=== PATIENT | male | born 1955 | race Caucasian/White ===

== ENCOUNTER 2018-12-18 09:43 | Observation (INO) | payer SELFPAY ==
[~2018-12-18] VITALS: Ht 182.9 cm; Wt 100.8 kg
--- NOTE | 2018-12-18 09:55 | NUR ---
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 SYCOPAL EPISODE LASTED APPROX 1-3 MINS PER C[employer]ORKERS. PATIENT STATES THAT HE WAS DIZZY EARLIER BUT RESOLVED NOW. VS STABLE. DR. ARITA AT BEDSIDE.
[2018-12-18] MEDS ORDERED: SODIUM CHLORIDE FLUSH 10ML SYR IVF ONE (10:00)
--- NOTE | 2018-12-18 10:13 | NUR ---
MULTIPLE CALLS MADE TO , JESSICA, AT [phone], TO LET HER KNOW THAT PATIENT IS HERE BUT UNABLE TO REACH HER.
[2018-12-18 10:26] LABS: BASOPHILS # (AUTO) 0.04 x10^3/uL (0-0.1); BASOPHILS % (AUTO) 1 % (0-1); EOSINOPHILS # (AUTO) 0.13 x10^3/uL (0-0.4); EOSINOPHILS % (AUTO) 2 % (1-7); LYMPHOCYTES # (AUTO) 1.87 x10^3/uL (1-3.4); LYMPHOCYTES % (AUTO) 23 % (22-44); MD NO; MEAN CORPUSCULAR HEMOGLOBIN 29.8 pg (27.5-34.5); MEAN CORPUSCULAR HGB CONC 34.8 g/dL (33.2-36.2); MEAN CORPUSCULAR VOLUME 85.7 fL (81-97); MEAN PLATELET VOLUME 8.5 fL (7.4-10.4); MONOCYTES # (AUTO) 0.57 x10^3/uL (0.2-0.8); MONOCYTES % (AUTO) 7 % (2-9); NEUTROPHILS # (AUTO) 5.35 x10^3/uL (1.8-6.8); NEUTROPHILS % (AUTO) 67 % (42-75); PLATELET COUNT 255 x10^3/uL (130-400); RED CELL DISTRIBUTION WIDTH 14.1 % (9.4-14.8)
[2018-12-18 10:38] LABS: ALANINE AMINOTRANSFERASE 32 U/L (12-78); ALBUMIN 3.9 g/dL (3.4-5.0); ANION GAP 5 mmol/L (5-15); CALCIUM 9.2 mg/dL (8.5-10.1); CHLORIDE 98 mmol/L (98-107); CREATININE 1.01 mg/dL (0.7-1.3); T4 (THYROXINE) 9.1 mcg/dL (4.5-12.1)
[2018-12-18 10:43] LABS: ALKALINE PHOSPHATASE 84 U/L (45-117); BILIRUBIN,TOTAL 0.6 mg/dL (0.2-1.0); TOTAL PROTEIN 7.1 g/dL (6.4-8.2); TROPONIN I < 0.015 ng/mL (0.000-0.045)
[2018-12-18] MEDS ORDERED: TRAZODONE 50MG TABLET PO PRN (11:30)
[2018-12-18] MEDS ORDERED: BACLOFEN 10 MG TABLET PO PRN (11:30)
[2018-12-18] MEDS ORDERED: GLUCAGON 1 MG IM PRN (11:30)
[2018-12-18] MEDS ORDERED: ACETAMINOPHEN 325 MG TABLET PO PRN (11:30)
[2018-12-18] MEDS ORDERED: DEXTROSE 4 GM TAB.CHEW PO PRN (11:30)
[2018-12-18] MEDS: INSULIN LISPRO 100 UNITS/ML, PEN SQ-INSULIN SCH ×3 (11:30→19:57)
[2018-12-18] MEDS ORDERED: DEXTROSE 50%, 50ML SYRINGE IVPush PRN (11:30)
[2018-12-18] MEDS ORDERED: ALLOPURINOL PO (12:01)
[2018-12-18] MEDS ORDERED: LISINOPRIL PO (12:01)
[2018-12-18] MEDS ORDERED: CHLORTHALIDONE PO (12:01)
[2018-12-18] MEDS ORDERED: CLONIDINE PO (12:01)
[2018-12-18] MEDS ORDERED: METFORMIN PO (12:01)
[2018-12-18 13:19] VITALS: BP 175/88
[2018-12-18] MEDS: hydrALAzine 20 MG/ML, 1ML IVPush PRN (13:26)
[2018-12-18] MEDS: SODIUM CHLORIDE FLUSH 10ML SYR IVF SCH ×2 (13:26→19:56)
[2018-12-18] MEDS ORDERED: HYDR-3245 PO (13:51)
[2018-12-18] MEDS ORDERED: INSU100V11 SQ-INSULIN (13:51)
[2018-12-18] MEDS: NS + 20MEQ KCL 1,000 ML IV SCH (13:54)
[2018-12-18 14:33] VITALS: BP 154/69
[2018-12-18 15:02] LABS: MICROSCOPIC NOT IND
[2018-12-18 15:09] LABS: CULTURE INDICATED? NO
[2018-12-18 16:01] VITALS: BP 154/86
[2018-12-18 16:02] VITALS: BP_SYST 150; BP_SYST 169; BP_DIAS 76; BP_DIAS 82
[2018-12-18 16:34] LABS: TROPONIN I < 0.015 ng/mL (0.000-0.045)
[2018-12-18] MEDS: INSULIN NPH HUMAN 100 UNIT/ML, 3ML VIAL SQ-INSULIN SCH (17:04)
[2018-12-18 17:32] LABS: HEMOGLOBIN A1C 7.3 % (4.2-6.3)
[2018-12-18 18:42] VITALS: BP 167/80
[2018-12-18] MEDS: HYDROcodone/APAP 10/325 MG TABLET PO PRN (19:01)
[2018-12-18] MEDS ORDERED: CHLORTHALIDONE 25 MG TABLET PO SCH (21:00)
[2018-12-18] MEDS ORDERED: LISINOPRIL 10 MG TABLET PO SCH (21:00)
[2018-12-18] MEDS ORDERED: ALLOPURINOL 300 MG TABLET PO SCH (21:00)
[2018-12-19 01:15] VITALS: BP 147/78
[2018-12-19] MEDS: HYDROcodone/APAP 10/325 MG TABLET PO PRN ×2 (02:36→10:34)
[2018-12-19] MEDS: NS + 20MEQ KCL 1,000 ML IV SCH (03:14)
[2018-12-19] MEDS: INSULIN NPH HUMAN 100 UNIT/ML, 3ML VIAL SQ-INSULIN SCH ×2 (05:50→17:06)
[2018-12-19 06:10] LABS: ANION GAP 9 mmol/L (5-15); CHLORIDE 100 mmol/L (98-107); CREATININE 0.94 mg/dL (0.7-1.3)
[2018-12-19 07:05] VITALS: BP 152/82
[2018-12-19] MEDS: INSULIN LISPRO 100 UNITS/ML, PEN SQ-INSULIN SCH ×3 (08:05→16:57)
[2018-12-19] MEDS ORDERED: ALLOPURINOL 300 MG TABLET PO SCH (09:00)
[2018-12-19] MEDS ORDERED: CHLORTHALIDONE 25 MG TABLET PO SCH (09:00)
[2018-12-19] MEDS ORDERED: LISINOPRIL 10 MG TABLET PO SCH (09:00)
[2018-12-19] MEDS: SODIUM CHLORIDE FLUSH 10ML SYR IVF SCH (10:20)
[2018-12-19 15:55] VITALS: BP 173/79
[2018-12-19] MEDS ORDERED: AMLODIPINE 5 MG TABLET PO SCH (16:30)
[2018-12-19] MEDS ORDERED: AMLO-150 PO (16:31)
[2018-12-19 17:40] VITALS: BP 180/90
[2018-12-19] MEDS: hydrALAzine 20 MG/ML, 1ML IVPush PRN (17:58)
== END 2018-12-19 18:23 | disposition home or self-care (01) ==
LOC: ED 10:50 → EDIP 10:51 → ED 11:20 → 4WST 13:02
PROVIDERS: ADMIT Internal Medicine; ATTEND Internal Medicine
DX: R55 Syncope and collapse (principal); E11.9 Type 2 diabetes mellitus without complications; E66.9 Obesity, unspecified; I10 Essential (primary) hypertension; M06.9 Rheumatoid arthritis, unspecified
CPT/HCPCS: 36415; 71045; 80048; 80053; 81003; 82962; 83036; 83880; 84436; 84443; 84484; 85025; 93005; 93306; 93880; 96361; 96372; 96374; 96376; 99284; G0378; J0360; J1815; J3480